=== PATIENT | male | born 1995 | race Two or more races ===

== ENCOUNTER 2016-05-30 17:19 | Emergency (ER) | payer OTHER ==
[2016-05-30 17:39] VITALS: BP 139/51
--- NOTE | 2016-05-30 18:08 | EDM.PDOC ---
ED HPI Trauma - General Chief Complaint: Upper Extremity Injury/Pain Stated Complaint: RIGHT WRIST INJURY Time Seen by Provider: 05/30/16 17:50 Source: Reports: Patient History Limitations: Reports: No limitations - History of Present Illness INITIAL COMMENTS - FREE TEXT/NARRATIVE: Patient presents with right wrist pain. Yesterday at work he was catching and stacking 50# bags of potatoes and onions. He didn't notice any pain or injury until a few hours afterward. He denies any numbness or tingling. He denies any other injury. Allergies/ADRs: Allergies No Known Allergies Allergy (Verified 05/30/16 17:39) Home Medications: Ambulatory Orders . [No Known Home Meds] 05/30/16 [Confirmed 05/30/16] Past Medical History - Past Health History Medical/Surgical History: Denies Medical/Surgical History Social & Family History - Family History Family Medical History: Noncontributory Review of Systems - Review of Systems Review Of Systems: ROS reveals no pertinent complaints other than HPI. Trauma Exam - Physical Exam Exam: See Below Exam Limited By: No limitations General Appearance: Reports: alert, WD/WN, no apparent distress Head: Reports: atraumatic, normocephalic Eyes: bilateral eye: EOMI, normal inspection, PERRL Ears: Reports: normal external exam, hearing grossly normal Nose: Reports: normal inspection, no blood Throat/Mouth: Reports: Normal lips, Normal voice, No airway compromise Neck: Reports: full range of motion Respiratory Exam: Reports: no respiratory distress, lungs clear, normal breath sounds Cardiovascular: Reports: regular rate, rhythm, no murmur Extremities: Reports: other (Exam of right wrist reveals mild swelling radially , with pain at extremes of ROM in all directions, especially dorsiflexion. No snuffbox tenderness. The pain is worst in the volar radial wrist between the base 1st metacarpal and the distal radius. [employer] strength is 5/5. No pain to palpation of forearm up to elbow. No pain to palpation of rest of hand, fingers or ulnar wrist. No obvious deformity or ecchymosis.) Neurologic: Reports: no motor/sensory deficits, alert, normal mood/affect, oriented x 3 Skin: Reports: Normal color, Warm/dry - [place]u Coma Score Best Eye Response ([place]): (4) open spontaneously Best Verbal Response ([place]): (5) oriented Best Motor Response ([place]): (6) obeys commands Course - Vital Signs Last Recorded V/S: Last Vital Signs Temp 97.2 F 05/30/16 17:35 Pulse 61 05/30/16 17:35 Resp 18 05/30/16 17:35 BP 139/51 L 05/30/16 17:35 Pulse Ox 99 05/30/16 17:35 - Orders/Labs/Meds Orders: Active Orders 24 hr Category Date Time Status Wrist Comp Min 3V Rt [CR] Stat Exams 05/30/16 17:39 Ordered - Re-Assessments/Exams Free Text/Narrative Re-Assessment/Exam: 05/30/16 18:38 Xrays reveal no evidence of fracture or dislocation; confirmed by rad report. A wrist splint is fitted and applied to right wrist. Findings and treatment plan along with expectations are discussed with patient and a work note restricting no use of right hand for a week provided. Will use Ibuprofen for pain control as needed but primarily control pain by limiting use or activity of hand/wrist. Patient agrees. Discharged in stable condition. Departure - Departure Time of Disposition: 18:24 Disposition: Home, Self-Care 01 Condition: good Clinical Impression: Right wrist sprain Qualifiers: Encounter type: initial encounter Qualified Code(s): S63.501A - Unspecified sprain of right wrist, initial encounter Forms: ED Department Discharge Additional Instructions: 1. Wear wrist splint day and night for a week. 2. Take Ibuprofen as directed. 3. Avoid activity or use of wrist that causes pain. 4. Follow up with a clinic medical provider in a week unless the wrist pain is completely resolved. - My Orders Last 24 Hours: My Active Orders 05/30/16 17:39 Wrist Comp Min 3V Rt [CR] Stat - Assessment/Plan Last 24 Hours: My Active Orders 05/30/16 17:39 Wrist Comp Min 3V Rt [CR] Stat
[2016-05-30] MEDS: Ibuprofen 600 MG Tab PO SCH ×2 (18:29→18:39)
== END 2016-05-30 18:40 | disposition home or self-care (01) ==
LOC: KA.ED 17:19
DX: S63.501A Unspecified sprain of right wrist, initial encounter (principal); X50.0XXA Overexertion from strenuous movement or load, initial encounter; Y92.69 Other specified industrial and construction area as the place of occurrence of the external cause
CPT/HCPCS: 29125; 73110; 99283; A9270